=== PATIENT | male | born 1985 | race Caucasian/White ===

== ENCOUNTER 2017-02-16 22:05 | Emergency (ER) | payer SELFPAY ==
[~2017-02-16] VITALS: Ht 170.2 cm; Wt 84.1 kg
[2017-02-17] MEDS ORDERED: NORCO 325 MG-51 TAB PO (00:17)
[2017-02-17] MEDS ORDERED: BACTRIM DS 8001 TAB PO (00:17)
[2017-02-17 01:05] VITALS: BP 151/90; PULSE 86; TEMP 98.5
== END 2017-02-17 01:20 | disposition home or self-care (01) ==
LOC: COL.ER 22:05
DX: L02.415 Cutaneous abscess of right lower limb (principal); F17.210 Nicotine dependence, cigarettes, uncomplicated; Z23 Encounter for immunization
CPT/HCPCS: J1170